=== PATIENT | female | born 1975 | race Caucasian/White ===

== ENCOUNTER 2023-03-30 17:05 | Emergency (ER) | payer MEDICAID, SELFPAY ==
[2023-03-30 17:08] VITALS: BP 117/65; PULSE 98; RESP 14; TEMP 36.7; O2SAT 98; BMI 21.2
--- NOTE | 2023-03-30 17:54 | EX.ED.DYSGE1 ---
HPI History of Present Illness Chief Complaint: Other, Pain/Inj Informant: patient Onset/Context/Timing Onset: Days (10) Context: Gradual Onset Timing: Continuous Quality: Throbbing Location: Right breast Worsened by: Wearing a bra Relieved by: Nothing Narrative Narrative: Patient presents with an abscess to her right breast that has been getting progressively worse over the last 10 days. Patient describes her pain as throbbing. Patient states it is worse when she wears a bra. Patient denies any discharge or drainage. Patient admits to subjective fever but denies any chills. Patient denies any shortness of breath or cough. Patient admits to some mild redness over the right breast. [facility] Medical History (Updated 03/30/23 @ 20:[address] Jules Zuñiga DO) Diabetes Home Medications cephalexin 500 mg capsule 500 mg PO Q6 #40 CAPSULES 03/30/23 [Rx Last Taken Unknown] Allergy/AdvReac Type Severity Reaction Status Date / Time codeine Allergy SOB Verified 03/30/23 17:07 Surgical History (Updated 03/30/23 @ 20:[address] Jules Zuñiga DO) History of section History of hysterectomy Hx of cholecystectomy Social History Smoking Status: Current every day smoker tobacco type: cigarettes ROS ROS ED Constitutional Constitutional ED: Reports fever(s) and subjective Eyes Eyes: Denies blurry vision or change in vision ENT ENT ED: Denies rhinorrhea or sore throat Cardiovascular Cardiovascular: Denies chest pain or palpitations Respiratory/Chest Respiratory/Chest: Denies cough or dyspnea Gastrointestinal Gastrointestinal: Denies nausea or vomiting Genitourinary Genitourinary ED: Denies dysuria or hematuria Musculoskeletal Musculoskeletal: Denies back pain or neck pain Integumentary Denies abscess or rash Neurologic Neurologic: Denies headache(s) or weakness Allergic/Immunologic Allergic/Immunologic ED: Denies mouth swelling or urticaria EXAM Physical Exam Const Vital Signs: 03/30/23 17:08 Temperature 98.1 F Temperature Source Temporal Pulse Rate 98 Respiratory Rate 14 Blood Pressure 117/65 Blood Pressure Mean 82 Pulse Ox 98 Oxygen Delivery Method Room Air Positive well nourished and well developed General Appearance ED: well developed and NAD HEENT Reports moist mucous membranes Neck supple and no JVD Chest Wall Chest Narrative: There is tenderness, induration, erythema, and mild warmth over the medial aspect of the right breast and areola. There is mild fluctuance. There is no active discharge or drainage noted. Resp normal respiratory effort and clear to auscultation bilaterally Cardio regular rate and regular rhythm GI non-tender and non-distended Palpation: soft Neuro oriented x3, CN's II-XII intact bilaterally and no sensory deficits noted Sensorium / Orientation: alert Motor Exam: strength 5/5 throughout Psych mental status grossly normal MDM MDM MDM Narrative Medical decision making narrative: Patient was advised of the need for incision and drainage. Informed consent was obtained. Patient was given opportunity ask questions about procedure. Patient no further questions. The right breast area was anesthetized with 1% lidocaine locally. A small linear incision was made along the margin of the areola. There is some minimal purulent drainage. There is some bloody drainage noted. Loculations were broken up with curved hemostats. Patient tolerated procedure well. Bacitracin dressing was applied. Patient was given a dose of Keflex here. Patient was given a prescription for Keflex. Patient was instructed to continue to use warm compresses to the area. Patient was instructed to follow-up with her primary care physician in 5 to 7 days. Patient understood and was agreeable with the plan. All questions were answered. Discharge Plan Triage Chief Complaint: Other, Pain/Inj ED Provider: Jules Zuñiga Dx/Rx/DC Orders Clinical Impression: Abscess of breast, right Instructions: ED Abscess Incision And Drainage Prescriptions: New cephalexin [cephalexin] 500 mg capsule 500 mg PO Q6 Qty: 40 0RF Primary Care Provider: Care Physician,No Primary Referrals: Brit Mora MD [Med Staff - Fitting Room Checker] - 5-7 Days Care Physician,No Primary [Primary Care Provider] - Disposition Disposition: Home, Self Care
[2023-03-30] MEDS: Lidocaine 1% (20 ml mdv) 20 ML Vial INFILT (17:57)
[2023-03-30] MEDS: Cephalexin 500 MG Capsule PO (17:57)
[2023-03-30 20:22] LABS: Bedside Glucose 74 mg/dL (74-106)
== END 2023-03-30 20:33 | disposition home or self-care (01) ==
PROVIDERS: Emergency Provider Emergency Medicine; Visit Provider Emergency Medicine
DX: N61.1 Abscess of the breast and nipple (principal); F17.210 Nicotine dependence, cigarettes, uncomplicated
CPT/HCPCS: 10060; 82962; 99283

== ENCOUNTER 2024-01-07 05:12 | Emergency (ER) | payer MEDICAID, SELFPAY ==
[2024-01-07 05:13] VITALS: BP 150/101; PULSE 86; RESP 19; TEMP 36; O2SAT 99; BMI 22.2
[2024-01-07 05:18] VITALS: BP 150/101; PULSE 80; RESP 18; TEMP 36; O2SAT 99
--- NOTE | 2024-01-07 05:41 | EKG12_ITS ---
Test Reason : CP Blood Pressure : / mmHG Vent. Rate : 086 BPM Atrial Rate : 086 BPM P-R Int : 116 ms QRS Dur : 086 ms QT Int : 366 ms P-R-T Axes : 057 086 069 degrees QTc Int : 437 ms Normal sinus rhythm Normal ECG Confirmed by JEFF MALIN MD ([id number]), newspaper copy editor KAREN NERI ([id number]) on 01/08/2024 8:17:44 AM Referred By: SIVA Confirmed By:JEFF MALIN MD
[2024-01-07 05:42] LABS: Bedside Glucose 194 mg/dL (74-106)
--- NOTE | 2024-01-07 05:42 | EDS_ITS ---
HPI History of Present Illness Chief Complaint: Rash Informant: patient and spouse/S.O. Narrative Narrative: Patient is a 48-year-old female with past medical history of type 1 diabetes which was diagnosed in her mid 30s. She states her blood sugars typically run between 150 and 200 but over the last 2 days they have been elevated. She states that over the last 4 to 5 days she is also noticed a right-sided chest discomfort that is been more constant in nature. She states there is no associated nausea vomiting diaphoresis or shortness of breath. She reports that in the last 24 hours she has now developed a rash in the same region as her discomfort and secondary to the persistent nature of symptoms that are now worsening secondary to the rash she presents for evaluation. [facility] Medical History Diabetes Type 1 diabetes Home Medications ondansetron 4 mg disintegrating tablet 4 mg PO TID PRN nausea and vomiting #21 tabs 01/07/24 [Rx Last Taken Unknown] oxycodone-acetaminophen 5 mg-325 mg tablet (Percocet) 1 tab PO Q6H PRN pain 5 days #20 tabs 01/07/24 [Rx Last Taken Unknown] valacyclovir 1 gram tablet (Valtrex) 1,000 mg PO TID 7 days #21 tabs 01/07/24 [Rx Last Taken Unknown] Allergy/AdvReac Type Severity Reaction Status Date / Time codeine Allergy SOB Verified 01/07/24 05:13 Surgical History (Updated 03/30/23 @ 20:[address] Jules Zuñiga DO) History of section History of hysterectomy Hx of cholecystectomy Social History Smoking Status: Current every day smoker tobacco type: cigarettes ROS ROS ED Constitutional Constitutional ED: Denies chills or fever(s) Eyes Eyes: Denies change in vision ENT ENT ED: Denies sore throat Cardiovascular Cardiovascular: Reports chest pain; Denies palpitations or racing heartbeat Respiratory/Chest Respiratory/Chest: Denies cough or dyspnea Gastrointestinal Gastrointestinal: Reports nausea; Denies abdominal pain, diarrhea or vomiting Genitourinary Genitourinary ED: Denies dysuria Musculoskeletal Musculoskeletal: Reports myalgias Integumentary Reports rash Neurologic Neurologic: Denies headache(s) Hematologic/Lymphatic Hematologic/Lymphatic: Denies easy bleeding or easy bruising EXAM Physical Exam Const Vital Signs: 01/07/24 05:13 01/07/24 05:18 Temperature 96.8 F L 96.8 F L Temperature Source Temporal Temporal Pulse Rate 86 80 Respiratory Rate 19 H 18 Blood Pressure 150/101 H 150/101 H Blood Pressure Mean 117 117 Pulse Ox 99 99 Oxygen Delivery Method Room Air Room Air Positive well nourished and well developed General Appearance ED: well developed HEENT HEENT Narrative: Normocephalic atraumatic Eyes PERRL and EOMs intact bilaterally General Eye ED: Negative for scleral icterus Neck supple and no JVD Neck Narrative: No carotid bruit noted No nuchal rigidity or meningeal signs Chest Wall Chest Narrative: There is pain with palpation of the right chest wall along the T4/T5 dermatome. No bony deformity or crepitance At this site there is also a erythematous vesicular rash that does not cross midline consistent with herpes zoster. Resp normal respiratory effort and clear to auscultation bilaterally Cardio regular rate and regular rhythm Rate: other Other Details: Heart is regular rate and rhythm without murmurs rubs or gallops Radial and carotid pulses are equal and symmetric GI normal to inspection, nondistended, normoactive bowel sounds, non-tender, non- distended and no masses Auscultation: normoactive bowel sounds Palpation: soft Back/Spine Back/Spine Narrative: Rash along the T4/T5 dermatome on the right that stops at midline consistent with herpes zoster otherwise normal Extremity normal to inspection Extremity Narrative: No asymmetric edema no pitting edema negative Homans' sign bilaterally Neuro oriented x3, CN's II-XII intact bilaterally and no sensory deficits noted Sensorium / Orientation: alert Motor Exam: strength 5/5 throughout Psych Psych Narrative: Patient has a nervous/anxious affect Skin Skin Narrative: Erythematous vesicular rash along the right T4/T5 dermatome that does not cross midline consistent with herpes zoster MDM MDM MDM Narrative Medical decision making narrative: Patient presented to the ER hypertensive but otherwise with stable vitals. She reported 4 to 5 days of constant right-sided chest discomfort without vomiting diaphoresis or shortness of breath with progression of a rash. Differential diagnosis is for herpes zoster versus acute coronary syndrome versus pneumonia versus pneumothorax versus potential abdominal pathology as biliary colic or acute cholecystitis. An EKG was obtained which showed normal sinus rhythm without ischemia or STEMI changes. There is no cardiac dysrhythmia changes noted. Patient's breath sounds are clear and she is satting 98 to 100% on room air and does not have cough and therefore my concern for underlying lung pathology is low. Physical exam shows a rash in dermatomal pattern at the same area as she was experiencing her discomfort indicating this is herpes zoster/shingles. Therefore as we have a reason for her chest discomfort and the remainder of her exam is not suggesting any acute signs of secondary infection or ACS or DVT/PE I do not feel there is need for further workup and she is otherwise safe for discharge. History & Record Review Discussion w/independent historian: Patient Lab Data Labs: Laboratory Results - last 24 hr 01/07/24 05:24 POC Glucose 194 H Discharge Plan Triage Chief Complaint: Rash ED Provider: Shan Aldana Dx/Rx/DC Orders Clinical Impression: Herpes zoster, Type 1 diabetes Instructions: Shingles (Herpes Zoster) Prescriptions: New oxycodone-acetaminophen [Percocet] 5-325 mg tablet 1 tab PO Q6H PRN (Reason: pain) 5 Days Qty: 20 0RF ondansetron 4 mg tablet,disintegrating 4 mg PO TID PRN (Reason: nausea and vomiting) Qty: 21 0RF valacyclovir [Valtrex] 1 gram tablet 1,000 mg PO TID 7 Days Qty: 21 0RF Primary Care Provider: Care Physician,No Primary Referrals: Kilo Munson MD [Med Staff - Active Staff] - Care Physician,No Primary [Primary Care Provider] - Disposition Disposition: Home, Self Care
[2024-01-07] MEDS: Morphine 4 MG/ML Syringe IV (05:54)
[2024-01-07] MEDS: Ondansetron 4 MG/2 ML Vial IV (05:54)
[2024-01-07 06:28] VITALS: BP 137/85; PULSE 78; RESP 16; TEMP 36.7; O2SAT 97
[2024-01-07] MEDS: Ketorolac 30 MG/ML Syringe IV (06:37)
[2024-01-07] MEDS: Orphenadrine 60 MG/2 ML Ampul IV (06:38)
== END 2024-01-07 06:46 | disposition home or self-care (01) ==
PROVIDERS: Emergency Provider Emergency Medicine; Visit Provider Emergency Medicine
DX: B02.9 Zoster without complications (principal); E10.9 Type 1 diabetes mellitus without complications; F17.210 Nicotine dependence, cigarettes, uncomplicated
CPT/HCPCS: 82962; 93005; 96374; 96375; 99283; A4216; J2405

== ENCOUNTER 2024-08-16 14:34 | Emergency (ER) | payer SELFPAY ==
[2024-08-16 14:35] VITALS: BP 132/83; PULSE 103; RESP 16; TEMP 36.1; O2SAT 97; BMI 21.1
[2024-08-16 16:39] LABS: Bedside Glucose 306 mg/dL (74-106)
[2024-08-16 16:44] VITALS: BP 131/76; PULSE 103; RESP 22; O2SAT 98
[2024-08-16 17:01] LABS: Bedside Glucose 287 mg/dL (74-106)
[2024-08-16] MEDS: 0.9% Normal Saline (1000mL) 1,000 ML 1000 ML IV (17:23)
[2024-08-16] MEDS: Ondansetron 4 MG/2 ML Vial IV (17:28)
[2024-08-16 17:30] LABS: Absolute Lymphocyte Count 1.27 X10^3/uL (0.83-4.51); Absolute Neutrophil Count 10.5 X10^3/uL (2.0-7.7); Basophil# 0.08 X10^3/uL; Basophil% 0.6 % (0-1); Eosinophil# 0.05 X10^3/uL; Eosinophils% 0.4 % (0-5); Hematocrit 44.1 % (37-47); Hemoglobin 14.4 g/dL (12.0-15.0); Lymphocyte # 1.27 X10^3/ul (0.83-4.51); Lymphocyte % 10.1 % (19-41); Mean Corp Hgb Conc 32.7 g/dL (32-36); Mean Corpuscular Hgb 28.9 pg (27.0-32.0); Mean Corpuscular Volume 88.6 fL (81-99); Mean Platelet Vol. 9.7 fl (6.2-12.0); Monocyte# 0.63 X10^3/uL; NRBC Flagged by Analyzer 0 % (0-5); Neutrophil # 10.52 X10^3/uL (2.7-7.7); Neutrophil % 83.3 % (47-70); Platelet Count 294 K/mm3 (150-450); RBC Distribution Width CV 12.7 % (11.6-14.6); RBC Distribution Width SD 41.3 fl (35.1-43.9); Red Blood Count 4.98 M/mm3 (4.2-5.4); White Blood Count 12.6 K/mm3 (4.4-11.0)
[2024-08-16 17:46] LABS: Anion Gap 10 (5-15); BUN 18 mg/dL (7-18); BUN/Creat Ratio 31.2 RATIO (10-20); Calcium,Total 9.4 mg/dL (8.5-10.1); Chloride 100 mmol/L (98-107); Creatinine, Serum 0.58 mg/dL (0.55-1.02); EST Glomerular Filtration Rate 118 mL/min (>60); Est Glom Filt Rate - Afr Amer 143 mL/min (>60); Estimated Creatinine Clearance 95.99 ml/min; Glucose 284 mg/dL (74-106); Potassium 3.8 mmol/L (3.5-5.1); Sodium Level 136 mmol/L (136-145)
[2024-08-16 18:00] VITALS: BP 102/90; PULSE 82; RESP 18; O2SAT 97
[2024-08-16 19:20] LABS: Bacteria 0 SEEN /hpf (None Seen); Mucous, Urine 0 SEEN /hpf (<or=2+)
[2024-08-16 19:22] LABS: Color, Urine Yellow (Yellow); Glucose, Dipstick 1000 mg/dl (Normal); Leukocyte Esterase-Dipstick Negative /ul (Negative); Nitrite-Dipstick Negative (Negative); Occult Blood-Urine 10 /ul (Negative); Protein-Dipstick 30 mg/dl (Negative); Urine Bilirubin Dipstick Negative (Negative); Urine Clarity Sl. Cloudy (Clear); Urine Urobilinogen Normal (Normal)
[2024-08-16 19:26] LABS: Ketone-Dipstick 150 mg/dl (Negative)
[2024-08-16 19:43] LABS: Red Blood Cells-Urine 0-5 SEEN /hpf (0-5); Squamous Epithelial Cells - UA 0-5 SEEN /hpf (5-10); White Blood Cells 0-5 SEEN /hpf (0-5)
[2024-08-16 20:00] VITALS: BP 110/63; PULSE 91; RESP 18; O2SAT 96
--- NOTE | 2024-08-16 20:37 | EDS_ITS ---
HPI History of Present Illness Chief Complaint: Hyperglycemia Detail of Chief Complaint: Blood sugar ranging from 300-500 Informant: patient Onset/Context/Timing Onset: Days Context: Sudden Onset Timing: Continuous and Waxes and wanes Quality: Elevated blood sugar with symptoms of hyperglycemia Location: Endocrine Current Severity: Moderate Maximum Severity: Moderate Worsened by: Unknown Relieved by: Patient had hypoglycemia because she overcorrected prior to coming. Associated Symptoms Associated Symptoms: Polyuria, polydipsia, urgency, and nocturia Narrative Narrative: Patient is a 49-year-old woman with type 1 diabetes for the past 15 years. She presents because of nausea, and elevated blood sugar.She reports diarrhea x 1 prior to admission. She reports nausea and vomiting the past 2 days. Had 1 episode on Thursday and 3 episodes on Thursday. She has no ill contacts. She denies fever, chills night sweats. She denied blood or mucus in her diarrhea. She denies cardiac or respiratory symptoms. She denies visual symptoms specifically blurred vision or double vision. She denies trouble with speech or swallowing. She denies paresthesia, anesthesia or motor weakness. Prior similar symptoms: Yes Recent Illness/Hospitalization: No PFSH PFSH Medical History Type 1 diabetes Diabetes Home Medications ?Medication ?Instructions ?Recorded ?Last Taken ?Type ondansetron 4 mg disintegrating 4 mg PO TID PRN nausea and 01/07/24 Unknown Rx tablet vomiting #21 tabs oxycodone-acetaminophen 5 mg-325 1 tab PO Q6H PRN pain 5 days #20 01/07/24 Unknown Rx mg tablet (Percocet) tabs valacyclovir 1 gram tablet 1,000 mg PO TID 7 days #21 tabs 01/07/24 Unknown Rx (Valtrex) Allergy/AdvReac Type Severity Reaction Status Date / Time codeine Allergy SOB Verified 08/16/24 14:40 Surgical History History of hysterectomy Hx of cholecystectomy History of section Social History Smoking Status: Current every day smoker tobacco type: cigarettes ROS ROS ED Constitutional Constitutional ED: Denies chills, fever(s) or subjective Eyes Eyes: Denies blurry vision or change in vision ENT ENT ED: Denies ear pain, rhinorrhea or sore throat Cardiovascular Cardiovascular: Denies chest pain, orthopnea, palpitations or paroxysmal nocturnal dyspnea Respiratory/Chest Respiratory/Chest: Denies cough, dyspnea, dyspnea on exertion, orthopnea or paroxysmal nocturnal dyspnea Gastrointestinal Gastrointestinal: Reports diarrhea, nausea and vomiting; Denies abdominal pain Genitourinary Genitourinary ED: Denies dysuria, hematuria or urinary frequency Musculoskeletal Musculoskeletal: Denies arthralgias or myalgias Integumentary Denies rash Neurologic Neurologic: Denies headache(s) or paresthesias Psychiatric Psychiatric: Denies anxiety Endocrine Endocrinology: Denies polydipsia, polyphagia or polyuria Hematologic/Lymphatic Hematologic/Lymphatic: Reports systems reviewed and no addt'l complaints, except as documented EXAM Physical Exam Const Vital Signs: 08/16/24 14:35 08/16/24 16:41 08/16/24 16:44 Temperature 97 F L Temperature Source Oral Pulse Rate 103 H 103 H Respiratory Rate 16 22 H Respiratory Effort Normal Non-Labored Blood Pressure 132/83 H 131/76 H Blood Pressure Mean 99 94 Pulse Ox 97 98 Oxygen Delivery Method Room Air Room Air 08/16/24 18:00 08/16/24 20:00 Temperature Temperature Source Pulse Rate 82 91 Respiratory Rate 18 18 Respiratory Effort Blood Pressure 102/90 H 110/63 Blood Pressure Mean 94 78 Pulse Ox 97 96 Oxygen Delivery Method Room Air Room Air Positive well nourished and well developed General Appearance ED: well developed and NAD; Negative for cyanotic, diaphoretic or pallor HEENT Reports dry mucous membranes HEENT Narrative: Head is atraumatic no cephalic. Ears normal. Nares patent. Posterior pharynx is normal. Mouth ED: Yes dry mucous membranes Mouth: dry mucous membranes Eyes PERRL and EOMs intact bilaterally General Eye ED: Negative for pale conjunctiva or scleral icterus Neck no lymphadenopathy, supple and no JVD Chest Wall inspection of chest normal and palpation of chest normal Resp normal respiratory effort and clear to auscultation bilaterally Cardio regular rhythm, S1 normal heart sound, S2 normal heart sound and no murmurs Rate: tachycardic GI normal to inspection, nondistended, normoactive bowel sounds, non-tender, non- distended and no masses; Negative for hepatosplenomegaly Back/Spine no CVA tenderness Extremity normal to inspection General Extremety ED: Negative for edema or tenderness General Extremity: Negative for edema Neuro oriented x3, CN's II-XII intact bilaterally and no sensory deficits noted Sensorium / Orientation: alert Motor Exam: strength 5/5 throughout Psych mental status grossly normal Skin no rashes or lesions noted, no wounds and skin turgor normal General Skin Exam: Negative for jaundice or pallor MDM MDM MDM Narrative Medical decision making narrative: Patient with hyperglycemia. This may be due to a viral illness. Will obtain urine to assess specific gravity and ketones. Doubt urinary tract infection. Suspect her urinary symptoms are due to hyperglycemia. CBC was obtained to assess for anemia and white count. BMP to assess electrolytes and renal function as well as CO2 anion gap. Clinically she is dehydrated. 1 L of normal saline was ordered wide open. History & Record Review Discussion w/independent historian: Patient and Family Lab Data Attestation: I reviewed the patient's lab results. Lab results narrative: White count is slight elevated 12.6 with no bandemia. The glucose is 284 with a normal CO2 anion gap. Renal function is normal. UA reveals ketones glucose and microscopic is negative. Meade gravity is elevated consistent with dehydration. Labs: Laboratory Results - last 24 hr 08/16/24 08/16/24 08/16/24 14:38 15:21 16:44 WBC 12.6 H RBC 4.98 Hgb 14.4 Hct 44.1 MCV 88.6 MCH 28.9 MCHC 32.7 RDW Std Deviation 41.3 RDW Coeff of Shahana 12.7 Plt Count 294 MPV 9.7 Immature Gran % (Auto) 0.600 Neut % (Auto) 83.3 H Lymph % (Auto) 10.1 L Patrick % (Auto) 5.0 Eos % (Auto) 0.4 Baso % (Auto) 0.6 Absolute Neuts (auto) 10.5 H Absolute Lymphs (auto) 1.27 Nucleated RBC % 0 Sodium 136 Potassium 3.8 Chloride 100 Carbon Dioxide 25.0 Anion Gap 10 BUN 18 Creatinine 0.58 Estim Creat Clear Calc 95.99 Est GFR (MDRD) Af Amer 143 Est GFR (MDRD) Non-Af 118 BUN/Creatinine Ratio 31.2 H Glucose 284 H Calcium 9.4 Urine Color Urine Clarity Urine pH Ur Specific [place] Urine Protein Urine Glucose (UA) Urine Ketones Urine Occult Blood Urine Nitrite Urine Bilirubin Urine Urobilinogen Ur Leukocyte Esterase Urine RBC Urine WBC Ur Squamous Epith Cells Urine Bacteria Urine Mucus POC Glucose 306 H 287 H 08/16/24 18:47 WBC RBC Hgb Hct MCV MCH MCHC RDW Std Deviation RDW Coeff of Shahana Plt Count MPV Immature Gran % (Auto) Neut % (Auto) Lymph % (Auto) Patrick % (Auto) Eos % (Auto) Baso % (Auto) Absolute Neuts (auto) Absolute Lymphs (auto) Nucleated RBC % Sodium Potassium Chloride Carbon Dioxide Anion Gap BUN Creatinine Estim Creat Clear Calc Est GFR (MDRD) Af Amer Est GFR (MDRD) Non-Af BUN/Creatinine Ratio Glucose Calcium Urine Color Yellow Urine Clarity Sl. Cloudy Urine pH 5.0 Ur Specific [place] 1.030 Urine Protein 30 H Urine Glucose (UA) 1000 H Urine Ketones 150 A* Urine Occult Blood 10 H Urine Nitrite Negative Urine Bilirubin Negative Urine Urobilinogen Normal Ur Leukocyte Esterase Negative Urine RBC 0-5 SEEN Urine WBC 0-5 SEEN Ur Squamous Epith Cells 0-5 SEEN Urine Bacteria 0 SEEN Urine Mucus 0 SEEN POC Glucose Treatment and Re-Evaluation :: I was informed at 2046 the patient is becoming impatient. I went back to see er. I apologized for not coming back sooner. She and her responded I understand you are busy. I apologize that I have not come back sooner. She then replied I think I can go home and take care of myself better than what you are able to . I told the patient I would finish her paperwork and discharge her. Discharge Plan Triage Chief Complaint: Hyperglycemia ED Provider: Jules Martinez Dx/Rx/DC Orders Clinical Impression: Hyperglycemia, Acute dehydration, DM ketosis, Leukocytosis, Nausea vomiting and diarrhea Instructions: ED Diabetic Hyperglycemia, ED Diarrhea, Unknown Cause Prescriptions: No Action oxycodone-acetaminophen [Percocet] 5-325 mg tablet 1 tab PO Q6H PRN (Reason: pain) 5 Days Qty: 20 0RF ondansetron 4 mg tablet,disintegrating 4 mg PO TID PRN (Reason: nausea and vomiting) Qty: 21 0RF valacyclovir [Valtrex] 1 gram tablet 1,000 mg PO TID 7 Days Qty: 21 0RF Primary Care Provider: Care Physician,No Primary Referrals: Care Physician,No Primary [Primary Care Provider] - Doctor,Your [Non-Staff] - 3-5 Days Print Language: Persian Disposition Disposition: Home, Self Care
[2024-08-16 20:51] VITALS: BP 110/78; PULSE 78; RESP 16; TEMP 36.7; O2SAT 97
== END 2024-08-16 20:59 | disposition home or self-care (01) ==
PROVIDERS: Emergency Provider Emergency Medicine; Visit Provider Emergency Medicine
DX: E10.65 Type 1 diabetes mellitus with hyperglycemia (principal); E86.0 Dehydration; D72.829 Elevated white blood cell count, unspecified; R11.2 Nausea with vomiting, unspecified; R19.7 Diarrhea, unspecified; F17.210 Nicotine dependence, cigarettes, uncomplicated
CPT/HCPCS: 80048; 81001; 82962; 85025; 96361; 96374; 96376; 99283; J7030; A4216; J2405